=== PATIENT | female | born 1985 | race Caucasian/White ===

== ENCOUNTER 2022-09-02 15:18 | Emergency (ER) | payer OTHER ==
[2022-09-02 15:25] VITALS: BP 132/60; PULSE 88; RESP 20; TEMP 98; BMI 54.9
[2022-09-02] MEDS ORDERED: CYCLOBENZAPRINE HCL 10 MG TABLET (FP) PO ONE (16:48)
[2022-09-02] MEDS ORDERED: KETOROLAC TROMETHAMINE 30 MG/1 ML VIAL IM ONE (16:48)
[2022-09-02] MEDS ORDERED: LIDOCAINE 5% TOPICAL PATCH TP ONE (16:48)
[2022-09-02] MEDS ORDERED: ACETAMINOPHEN 500 MG TABLET (FP) PO ONE (16:48)
[2022-09-02] MEDS ORDERED: KETOROLAC TROMETHAMINE 30 MG/1 ML VIAL ONE (16:56)
[2022-09-02] MEDS ORDERED: ACETAMINOPHEN 500 MG TABLET (FP) ONE (16:56)
[2022-09-02] MEDS ORDERED: LIDOCAINE 5% TOPICAL PATCH ONE (16:56)
[2022-09-02] MEDS ORDERED: CYCLOBENZAPRINE HCL 10 MG TABLET (FP) ONE (16:56)
[2022-09-02] MEDS ORDERED: LIDOCAINE PATCH REMOVAL MC SCH (22:00)
== END 2022-09-02 18:47 | disposition home or self-care (01) ==
LOC: JERFT 15:18
PROC: 3E0233Z Introduction of Anti-inflammatory into Muscle, Percutaneous Approach (ICD-10-PCS; principal; 2022-09-02)
DX: M54.50 Low back pain, unspecified (principal); X50.0XXA Overexertion from strenuous movement or load, initial encounter
CPT/HCPCS: 72100-TC-FY; 99284-25